=== PATIENT | female | born 1990 | race Caucasian/White ===

== ENCOUNTER 2016-06-24 13:36 | Emergency (ER) | payer SELFPAY ==
[~2016-06-24] VITALS: Ht 160 cm; Wt 76.7 kg
[2016-06-24 13:39] VITALS: TEMP 36.5; Ht 160 cm; Wt 76.7 kg
[2016-06-24] MEDS ORDERED: SODIUM CHLORIDE 0.9% 1000ML 1,000 ML IV ONE (14:00)
[2016-06-24 14:43] LABS: URINE APPEARANCE CLEAR (CLEAR); URINE BILIRUBIN NEG (NEG); URINE COLOR YELLOW; URINE EPITHELIAL CELL AUTO 20-30 /lpf (0-5); URINE NITRITE NEG (NEG); URINE PH 6.5 (4.5-7.5); URINE SPECIFIC GRAVITY 1.022 (1.000-1.030); UROBILINOGEN NEG (NEG); ZZUR CULT IF INDIC CLEAN CATCH NO
[2016-06-24 14:45] LABS: MANUAL MICROSCOPIC REQUIRED? NO; REVIEW REQ? NO
[2016-06-24 14:45] LABS: BASO % 0.3 %; BASO ABS # 0.02 K/uL (0-0.2); COMPLETE YES; EOS % 1.8 %; HEMATOCRIT 37.8 % (37-47); IG% 0.2 %; LYMPH ABS # 1.54 K/uL (1.2-3.4); MEAN CELL VOLUME 92.6 fL (80-100); MEAN CORPUSCULAR HEMOGLOBIN 30.9 pg (25-34); MEAN CORPUSCULAR HGB CONC 33.3 g/dl (32-36); MEAN PLATELET VOLUME 10.9 fL (7.4-10.4); MONO % 7.1 %; NEUT % 65.6 %; PLATELET COUNT 228 K/uL (130-400); RED BLOOD COUNT 4.08 M/uL (4.2-5.4); WHITE BLOOD COUNT 6.16 K/uL (4.8-10.8)
[2016-06-24 15:07] LABS: BUN/CREATININE RATIO 15.5 (10-20); CREATININE 0.74 mg/dl (0.60-1.20)
[2016-06-24 16:30] VITALS: BP 117/70; PULSE 75; O2SAT 97
--- NOTE | 2016-06-24 18:12 | EMERGENCY ROOM VISIT NOTE ---
History First contact with patient: 13:44 Chief Complaint: ED VAG BLEEDING Stated Complaint: POSITIVE PREG. TEST, HEAVY BLEEDING History of Present Illness The patient is a 25 year old female who presents to the Emergency Room with complaints of vaginal bleeding that started earlier today. The patient states that her last menstrual period was 5 weeks ago and she took a test at home 2 days ago that was positive. The patient states this would be her first , and she does not have significant pain or cramping. She does feel like she is bleeding similar to a menses. The patient does not have fever, chills, chest pain, shortness of breath, or abdominal pain. No changes in using the bathroom. She has been eating and drinking as normal. She does not follow with [facility] and is not on control. She rates her current discomfort a 5/10. Review of Systems More than 10 systems were reviewed and otherwise negative with the exception of history of present illness. Past Medical/Surgical History No chronic medical disease Family History No pertinent family history Social History Smoking Status: Current Every Day Smoker Housing Status: lives with family Current/Historical Medications No Active Prescriptions or Reported Meds Allergies Coded Allergies: No Known Allergies (Unverified , 06/24/16) Physical Exam Vital Signs Date Time Temp Pulse Resp B/P Pulse Ox O2 Delivery O2 Flow Rate FiO2 06/24/16 16:30 75 16 117/70 97 06/24/16 15:33 95 18 142/83 100 Room Air 06/24/16 13:39 36.5 102 20 139/85 97 Room Air Pain Rating (0-10): 3.0 Physical Exam VITALS: Vitals are noted on the nurse's note and reviewed by myself. Vital signs stable. GENERAL: Well-developed, well-nourished, white female, who is in no acute distress and resting comfortably. Patient is cooperative with the examination. HEAD: Normocephalic atraumatic. HEART: Regular rate and rhythm without murmurs gallops or rubs. LUNGS: Clear to auscultation bilaterally without wheezes, rales or rhonchi. No retractions or accessory muscle use. ABDOMEN: Positive normal bowel sounds x 4. Soft, nontender, without masses or organomegaly. No guarding or rebound tenderness. MUSCULOSKELETAL: No muscle atrophy, erythema, or edema noted. Full range of motion without joint tenderness in all extremities. NEURO: Patient was alert and oriented to person place and time. CN II through XII grossly intact. SKIN: The skin was without rashes, erythema, edema, or bruising. Capillary reflex less than 2 seconds. Medical Decision & Procedures Laboratory Results 06/24/16 14:12 Red Blood Count 4.08, Mean Corpuscular Volume 92.6, Mean Corpuscular Hemoglobin 30.9, Mean Corpuscular Hemoglobin Concent 33.3, Mean Platelet Volume 10.9, Neutrophils (%) (Auto) 65.6, Lymphocytes (%) (Auto) 25.0, Monocytes (%) (Auto) 7.1, Eosinophils (%) (Auto) 1.8, Basophils (%) (Auto) 0.3, Neutrophils # (Auto) 4.04, Lymphocytes # (Auto) 1.54, Monocytes # (Auto) 0.44, Eosinophils # (Auto) 0.11, Basophils # (Auto) 0.02 06/24/16 14:12 Test 06/24/16 14:04 06/24/16 14:12 Urine Color YELLOW Urine Appearance CLEAR (CLEAR) Urine pH 6.5 (4.5-7.5) Urine Specific [place] 1.022 (1.000-1.030) Urine Protein NEG (NEG) Urine Glucose (UA) NEG (NEG) Urine Ketones NEG (NEG) Urine Occult Blood 3+ (NEG) Urine Nitrite NEG (NEG) Urine Bilirubin NEG (NEG) Urine Urobilinogen NEG (NEG) Urine Leukocyte Esterase TRACE (NEG) Urine WBC (Auto) 1-5 /hpf (0-5) Urine RBC (Auto) >30 /hpf (0-4) Urine Hyaline Casts (Auto) 0 /lpf (0-5) Urine Epithelial Cells (Auto) 20-30 /lpf (0-5) Urine Bacteria (Auto) NEG (NEG) Urine Test NEG (NEG) White Blood Count 6.16 K/uL (4.8-10.8) Red Blood Count 4.08 M/uL (4.2-5.4) Hemoglobin 12.6 g/dL (12.0-16.0) Hematocrit 37.8 % (37-47) Mean Corpuscular Volume 92.6 fL (80-100) Mean Corpuscular Hemoglobin 30.9 pg (25-34) Mean Corpuscular Hemoglobin Concent 33.3 g/dl (32-36) Platelet Count 228 K/uL (130-400) Mean Platelet Volume 10.9 fL (7.4-10.4) Neutrophils (%) (Auto) 65.6 % Lymphocytes (%) (Auto) 25.0 % Monocytes (%) (Auto) 7.1 % Eosinophils (%) (Auto) 1.8 % Basophils (%) (Auto) 0.3 % Neutrophils # (Auto) 4.04 K/uL (1.4-6.5) Lymphocytes # (Auto) 1.54 K/uL (1.2-3.4) Monocytes # (Auto) 0.44 K/uL (0.11-0.59) Eosinophils # (Auto) 0.11 K/uL (0-0.5) Basophils # (Auto) 0.02 K/uL (0-0.2) RDW Standard Deviation 41.5 fL (36.4-46.3) RDW Coefficient of Variation 12.2 % (11.5-14.5) Immature Granulocyte % (Auto) 0.2 % Immature Granulocyte # (Auto) 0.01 K/uL (0.00-0.02) Anion Gap 7.0 mmol/L (3-11) Est Creatinine Clear Calc Drug Dose 115.9 ml/min Estimated GFR () 132.4 Estimated GFR (Non- 114.2 BUN/Creatinine Ratio 15.5 (10-20) Calcium Level 9.0 mg/dl (8.5-10.1) Total Bilirubin 0.2 mg/dl (0.2-1) Aspartate Amino Transf (AST/SGOT) 16 U/L (15-37) Alanine Aminotransferase (ALT/SGPT) 23 U/L (12-78) Alkaline Phosphatase 65 U/L (45-117) Total Protein 8.1 gm/dl (6.4-8.2) Albumin 4.1 gm/dl (3.4-5.0) Globulin 4.0 gm/dl (2.5-4.0) Albumin/Globulin Ratio 1.0 (0.9-2) Human Chorionic Gonadotropin, Quant 7 mIU/mL Chemistry Specimen Hemolysis Medications Administered Medications (Trade) Dose Ordered Sig/Elisabet Route Start Time Stop Time Status Last Admin Dose Admin Sodium Chloride (Nss 1000ml) 1,000 ml @ 999 mls/hr Q1H1M ONCE IV 06/24/16 14:00 06/24/16 15:00 DC 06/24/16 14:14 999 MLS/HR ED Course Physical exam and history were performed. Nursing notes and EMR were reviewed. Patient appears to have reports of vaginal bleeding that started earlier today. She states this feels like a menses. Additionally the patient states that she had a positive [id number] test 2 days ago. IV access was established and labs were obtained. The patient was hydrated with normal saline. The patient's blood work is as above and was reviewed. She does not have a significantly elevated white blood cell count, gross anemia, bandemia, or significant electrolyte imbalance. The patient's urine is without obvious signs of infection. Her urine screen was negative here in the department. I did elect to acquire a urine hCG quantitative, which returned at 7. The patient is blood type O negative. The patient remained in stable condition throughout her emergency department stay without significant bleeding or hemorrhage. I elected to discuss the case with [facility], and spoke with Dr Wells. Based on an hCG quantitative of 7 the recommendation was that ultrasound and [place] could be deferred. It is much more likely the patient had a false positive test at home and is now experiencing a normal menstrual period. The patient has not followed with OB/ [employer] in the past, and will be asked to call Dr Wells's office in the morning to arrange for follow-up. The patient was pleased with this plan and voiced understanding. She was invited back to the ER with any new, worsening, or concerning symptoms, and rated her discomfort a 0/10 at the time of departure. The chart was completed utilizing [employer] Speech Voice Recognition Software. Grammatical errors, random word insertions, pronoun errors, and incomplete sentences are an occasional consequence of this system due to software limitations, ambient noise, and hardware issues. Any formal questions or concerns about the content, text, or information contained within the body of this dictation should be directly addressed to the provider for clarification. . Medical Decision Differential diagnosis: Etiologies such as ectopic , dysfunction uterine bleeding, bleeding dyscrasia, trauma, infection, as well as others were entertained. Impression Primary Impression: Vaginal bleeding Departure Information Dispostion Home / Self-Care Condition GOOD Prescriptions No Active Prescriptions or Reported Meds Referrals Ken Wells M.D. Forms WORK / SCHOOL INSTRUCTIONS, HOME CARE DOCUMENTATION FORM, IMPORTANT VISIT INFORMATION Patient Instructions My [facility] Additional Instructions You were seen and evaluated today on an emergency basis only. This is not a substitute for, or an effort to provide, complete comprehensive medical care. It is not possible to recognize and treat all injuries or illnesses in a single emergency department visit. For this reason it is recommended that you followup with [facility], Dr. Wells's office, by telephone tomorrow to schedule a follow-up appointment in the next few days. They will want to recheck blood work. Let the office know we spoke with Dr. Wells to help make her appointment. You are welcome to return to the emergency department anytime with new, worsening, or concerning symptoms.
== END 2016-06-24 16:31 | disposition home or self-care (01) ==
LOC: C.EDB 13:38 → C.EDC 16:31
DX: N93.9 Abnormal uterine and vaginal bleeding, unspecified (principal); F17.210 Nicotine dependence, cigarettes, uncomplicated

== ENCOUNTER → 2017-09-27 | Outpatient (CLI) | payer OTHER | END | disposition home or self-care (01) | LOC: C.LAB1850 09:10 | PROVIDERS: ATTEND Obstetrics & Gynecology | DX: Z34.82 Encounter for supervision of other normal pregnancy, second trimester (principal) ==

== ENCOUNTER 2023-01-06 00:56 | Inpatient (IN) ==
[2023-01-06] MEDS ORDERED: LIDOCAINE 1% LOCAL 20 ML VIAL INFIL PRN (01:07)
[2023-01-06] MEDS ORDERED: OXYTOCIN 30 UNITS/NSS 30 UNITS/500 ML BAG IV PRN ×2 (01:07→01:52)
[2023-01-06] MEDS ORDERED: LACTATED RINGER'S 1,000 ML IV PRN (01:07)
--- NOTE | 2023-01-06 01:29 | Delivery Summary ---
Vaginal Delivery Summary Date of Service January 06, 2023 Vaginal Delivery Summary 32yo presents to L&D with active labor and noted to be 10cm dilated with bulging membranes. Some bloody show. +FM. PNC c/b history of delivery with at 23wks and depression on zoloft. Today bp was elevated in office but was due for induction today. Rh pos, RI, GBS neg. OBH: x 1, delivery as noted, sab x4 GYNH: no abnl paps, no stds. The patient was dilated to complete and bulging membranes that were arom'd for clear fluid. She then pushed to deliver a viable male infant Apgars 8 and 9 via over intact perineum. Loose nuchal x 2 reduced. Mouth and nose bulb suctioned at perineum. Shoulders and body delivered with ease. Infant was vigorous and crying at . Cord clamped at 30 seconds of life and infant to maternal abdomen where the cord was then doubly clamped and cut. Placenta delivered spontaneously and intact, three-vessel cord. Hemostasis achieved with dilute pitocin and uterine massage. Cervix and sulci intact. EBL 300 cc. Mother and baby stable in recovery. Will obtain routine labs and cmp as well due to elevated bp in office on arrival (although likely due to pain with labor). Routine pp care. [facility] Vaginal Delivery Charge Delivery Type Details:
[2023-01-06 01:50] LABS: Hemoglobin 9.5 g/dl (12.0-16.0); Mean Corpuscular Hgb Conc 30.6 g/dL (32.0-36.0); Mean Corpuscular Volume 91.4 fL (80.0-100.0); Mean Platelet Volume 11.5 fL (9.4-12.4); Platelet Count 172 K/uL (130-400); RDW Coefficient of Variation 14.3 % (11.5-14.5); RDW Standard Deviation 47.5 fL (36.4-46.3); Red Blood Count 3.39 M/uL (4.20-5.40); White Blood Count 10.24 K/ul (4.8-10.8)
[2023-01-06] MEDS ORDERED: HYDROCORTISONE ACETATE 25 MG SUPP PR PRN (01:52)
[2023-01-06] MEDS ORDERED: OXYTOCIN 20 UNITS/LR 1,002 ML IV SCH (01:52)
[2023-01-06] MEDS ORDERED: BENZOCAINE 20% SPRY 85 APPLN/85 GM CAN EXT PRN (01:52)
[2023-01-06] MEDS ORDERED: ACETAMINOPHEN 325 MG TAB PO PRN (01:52)
[2023-01-06] MEDS ORDERED: bisacodyL 10 MG SUPP PR PRN (01:52)
[2023-01-06] MEDS ORDERED: oxyCODONE/ACETAMINOPHEN 5mg/325mg TAB PO PRN (01:52)
[2023-01-06] MEDS ORDERED: DIPHTHERIA/TETANUS/PERTUSSIS Vaccine (Tdap, Age 7+yrs) 0.5mL SYR/VL IM ONE (01:52)
[2023-01-06] MEDS ORDERED: OXYTOCIN 20 UNITS/1002ML LR IV ONE (01:54)
[2023-01-06 02:05] LABS: Albumin Globulin Ratio 1.1 (0.9-2); Albumin Level 3.7 gm/dl (3.4-5.0); BUN Creatinine Ratio 15.7 (10-20); Bilirubin,Total 0.3 mg/dl (0.2-1.0); Calcium 8.7 mg/dl (8.6-10.3); Creatinine Clr Calc Pharmacy 124.6 ml/min; Est GFR (African American) 134.8 ml/min; Est GFR (Non-African American) 116.3 ml/min; Globulin 3.4 gm/dl (2.5-4.0); Potassium 3.6 mmol/L (3.5-5.1); Total Protein 7.1 gm/dl (6.0-8.3)
[2023-01-06] MEDS: IBUPROFEN 600 MG TAB PO PRN ×2 (08:09→20:20)
[2023-01-06] MEDS: PRENATAL VITAMIN 1 TAB PO SCH (08:10)
[2023-01-06] MEDS: DOCUSATE SODIUM 100 MG CAP PO SCH ×2 (08:10→20:20)
[2023-01-06] MEDS: SERTRALINE HCL 100 MG TABLET PO SCH (08:11)
[2023-01-07] MEDS: PRENATAL VITAMIN 1 TAB PO SCH (08:10)
[2023-01-07] MEDS: DOCUSATE SODIUM 100 MG CAP PO SCH (08:10)
[2023-01-07] MEDS: IBUPROFEN 600 MG TAB PO PRN (08:10)
[2023-01-07] MEDS: SERTRALINE HCL 100 MG TABLET PO SCH (08:12)
--- NOTE | 2023-01-07 08:13 | Obstetrical Progress Note ---
Date of Service January 07, 2023 Assessment & Plan (1) care following vaginal delivery: Plan Doing well Encourage ambulation Pain control Discharge today Need for breast pump Admission and Anticipated Discharge Date Admission Date: January 06, 2023 Supervising Physician Co-Signing Physician Notes Patient seen with resident and agree with the above findings and plan. Routine care Subjective 32 yo post day 1 s/p Ambulation: ambulating normally Voiding: no voiding problems Passing Gas:: Yes Diet Tolerance:: regular diet Lochia:: Small Feeding Type:: breast feeding Current Pain Level:minimal Resting comfortably this AM in NAD. Denies STEPHENS, CP, SOB, N/V/D, LE pain/swelling. Review of Systems Review of Systems: reviewed, per HPI Physical Exam Physical Exam: General: patient resting comfortably, NAD, non-toxic in appearance, answers questions appropriately. Skin: warm, dry, intact HEENT: NC/AT, anicteric sclera, conjunctiva without injection, moist mucus membranes. Heart: +S1/S2, regular, no m/r/g Lungs: equal air entry bilaterally, no rales/rhonchi/wheezes Abd: +BS, soft, NT/ND, uterine fundus firm at umbilicus. Ext: warm, no clubbing/cyanosis or edema, Samuel's neg. Neuro: speech intact, no facial droop, moving all extremities on command. Results & Data Vital Signs (Past 12 Hours) Vital Signs Temp Pulse Resp BP Pulse Ox O2 Del Method 01/06/23 23:30 36.9 C 76 20 114/74 98 Room Air Resident Activity Tracking Resident Involvement: Resident Care Provided Care Provided: Adult Hospital Medicine
== END 2023-01-07 14:00 | disposition home or self-care (01) | DRG 807 ==
LOC: 4S1 00:56 → 4E2 03:55